=== PATIENT | female | born 1960 | race Caucasian/White ===

== ENCOUNTER 2017-09-20 07:29 | Day surgery (SDC) | payer OTHER ==
[~2017-09-20] VITALS: Ht 157.5 cm; Wt 70.5 kg
[~2017-09-20 07:29] MED LIST: FentaNYL CITRATE-PF 100 MCG/2 ML VIAL ONE; MIDAZOLAM HCL 2 MG/2 ML VIAL ONE; SODIUM CHLORIDE 0.9% 1,000 ML IV ONE
[2017-09-20] MEDS ORDERED: LIDOCAINE HCL 4% 50 ML SOLUTION TP ONE (07:30)
[2017-09-20] MEDS ORDERED: LIDOCAINE HCL 2% 30 ML JELLY TP ONE (07:30)
[2017-09-20] MEDS ORDERED: SODIUM CHLORIDE 0.9% 1,000 ML IV ONE (07:30)
[2017-09-20] MEDS ORDERED: ALBUTEROL SULFATE 2.5 MG/0.5 ML NEB SOLUTION NEB ONE (07:30)
[2017-09-20] MEDS ORDERED: BENZOCAINE 20% 50 MCG/SPRAY 57 GM TP ONE (07:30)
[2017-09-20] MEDS ORDERED: LEVO75 PO (07:45)
[2017-09-20] MEDS ORDERED: GABA-531 PO (07:45)
[2017-09-20] MEDS ORDERED: AMOX875T2 PO (07:45)
[2017-09-20] MEDS ORDERED: MELO-107 PO (07:45)
[2017-09-20] MEDS ORDERED: VITAD1000 PO (07:45)
[2017-09-20] MEDS ORDERED: ATOR20TA86 PO (07:45)
[2017-09-20] MEDS ORDERED: LORA10TA7 PO (07:45)
[2017-09-20] MEDS ORDERED: MONT10TA21 PO (07:45)
[2017-09-20] MEDS ORDERED: PRED10 PO (07:45)
[2017-09-20] MEDS ORDERED: LINA290C PO (07:45)
[2017-09-20] MEDS ORDERED: FAMO20 PO (07:45)
[2017-09-20] MEDS ORDERED: MethylPREDNISolone SOD SUCC 125 MG/2 ML VIAL IVP ONE (08:30)
[2017-09-20] MEDS ORDERED: MethylPREDNISolone SOD SUCC 125 MG/2 ML VIAL ONE (08:54)
[2017-09-20] MEDS ORDERED: OXYGEN THERAPY IH SCH (20:00)
== END 2017-09-20 09:55 | disposition home or self-care (01) ==
LOC: SURGERY 07:29
PROVIDERS: ATTEND Internal Medicine Critical Care Medicine
DX: J38.4 Edema of larynx (principal); B37.0 Candidal stomatitis; J84.111 Idiopathic interstitial pneumonia, not otherwise specified; J44.9 Chronic obstructive pulmonary disease, unspecified; Z79.2 Long term (current) use of antibiotics; Z79.899 Other long term (current) drug therapy
CPT/HCPCS: 31623; 31624; 71045; 87015; 87070; 87205; 87220; 88108; 88184; 88185; 88312; J2250; J2930; J3010; J7030